=== PATIENT | male | born 1995 | race Hispanic/Latino ===

== ENCOUNTER 2024-04-16 18:21 | Emergency (ER) | payer OTHER ==
[2024-04-16] MEDS ORDERED: Boostrix 0.5 ML (Tdap) VIAL (>/=7 yrs of age) ONE (20:28)
== END 2024-04-16 20:37 | disposition home or self-care (01) ==
LOC: ERS 18:21
DX: S01.01XA Laceration without foreign body of scalp, initial encounter (principal); F17.290 Nicotine dependence, other tobacco product, uncomplicated; W26.9XXA Contact with unspecified sharp object(s), initial encounter
CPT/HCPCS: 12002; 90471; 90715

== ENCOUNTER 2024-04-24 19:00 | Emergency (ER) | payer OTHER | END 2024-04-24 21:45 | disposition home or self-care (01) | LOC: ERS 19:00 | DX: S01.01XD Laceration without foreign body of scalp, subsequent encounter (principal); F17.290 Nicotine dependence, other tobacco product, uncomplicated; W22.8XXD Striking against or struck by other objects, subsequent encounter ==